=== PATIENT | male | born 1970 | race Caucasian/White ===

== ENCOUNTER 2016-08-14 03:15 | Emergency (ER) | payer OTHER ==
[~2016-08-14] VITALS: Ht 185.4 cm; Wt 87.7 kg
[~2016-08-14 03:15] MED LIST: DILA4TAB10 PO; GABA100C4 PO; MS C30TA5 PO; NAPR-576 PO
[2016-08-14 03:19] VITALS: BP 125/74; PULSE 59; RESP 18; TEMP 97.6; O2SAT 98
[2016-08-14] MEDS ORDERED: DILA4TAB2 PO (03:39)
[2016-08-14] MEDS ORDERED: CELE200C PO (03:39)
[2016-08-14] MEDS ORDERED: SOMA350T PO (03:39)
[2016-08-14] MEDS ORDERED: GABA600T PO (03:39)
[2016-08-14] MEDS ORDERED: MS C30TA PO (03:39)
[2016-08-14] MEDS ORDERED: DOXY100C PO (03:58)
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
[2016-08-14] MEDS ORDERED: AZITHROMYCIN PWD FOR SUSP 1 GM PACKET PO ONE (04:00)
[2016-08-14] MEDS ORDERED: LIDOCAINE HCL 1% 50 ML VIAL IM ONE (04:00)
== END 2016-08-14 04:41 | disposition home or self-care (01) ==
LOC: PHED 03:15
DX: N34.1 Nonspecific urethritis (principal); I10 Essential (primary) hypertension; G89.29 Other chronic pain; M54.9 Dorsalgia, unspecified; F17.210 Nicotine dependence, cigarettes, uncomplicated
CPT/HCPCS: 96372; 99283; J0696

== ENCOUNTER 2017-01-12 20:48 | Emergency (ER) | payer OTHER ==
[~2017-01-12] VITALS: Ht 185.4 cm; Wt 84.0 kg
[~2017-01-12 20:48] MED LIST changes: +CELE200C PO; -DILA4TAB10 PO; +DILA4TAB2 PO; +DOXY100C PO; -GABA100C4 PO; +GABA600T PO; +MS C30TA PO; -MS C30TA5 PO; -NAPR-576 PO; +SOMA350T PO
[2017-01-12 20:55] VITALS: BP 115/74; PULSE 70; RESP 14; TEMP 98; O2SAT 98
--- NOTE | 2017-01-12 21:51 | PD ---
HPI Chief Complaint: Skin Problem Time Seen by Provider: 21:20 Travel History International Travel<30 days: No Contact w/Intl Traveler<30days: No Traveled to known affect area: No History of Present Illness HPI 47-year-old male presents to emergency department for evaluation of a painful lump on her back. Patient reports this lump has been there for several months but recently became painful and tender. He denies fever, chills, nausea or vomiting, chest pain shortness of breath. PFSH Past Medical History Medical History: Denies Significant Hx Diminished Hearing: No Headaches: Yes (CLUSTER HEADACHES) Herniated Disk: Yes (L4, L5, CERVICAL AND THORACIC) Hypertension: Yes (EARLY 30'S) Musculoskeletal: Yes (CHRONIC BACK PAIN) Migraines: Yes Tetanus Vaccination: < 5 Years Influenza Vaccination: No Past Surgical History Body Medical Devices: CLUSTER HEADACHES Other Surgery: Yes (lower lumbar disc fusion and addi placement: October) Social History Alcohol Use: No Tobacco Use: Yes (1 PPD) Substance Use: No Allergies-Medications (Allergen,Severity, Reaction): Coded Allergies: No Known Allergies (Verified , 01/12/17) Reported Meds & Prescriptions Reported Meds & Active Scripts Active Reported Soma (Carisoprodol) 350 Mg Tab 350 Mg PO TID PRN Ms Contin (Morphine Sulfate) 30 Mg Tab 30 Mg PO BID Dilaudid (Hydromorphone HCl) 4 Mg Tab 4 Mg PO Q4H PRN Gabapentin 600 Mg Tab 600 Mg PO BID Review of Systems Except as stated in HPI: all other systems reviewed are Neg Physical Exam Narrative GENERAL: Well-nourished, well-developed patient. SKIN: Focused skin assessment warm/dry. Sebaceous cyst with mild erythema posterior portion of thorax. No surrounding cellulitis. HEAD: Normocephalic. EYES: No scleral icterus. No injection or drainage. NECK: Supple, trachea midline. No JVD or lymphadenopathy. CARDIOVASCULAR: Regular rate and rhythm without murmurs, gallops, or rubs. RESPIRATORY: Breath sounds equal bilaterally. No accessory muscle use. GASTROINTESTINAL: Abdomen soft, non-tender, nondistended. MUSCULOSKELETAL: No cyanosis, or edema. BACK: Nontender without obvious deformity. No CVA tenderness. Data Data Last Documented VS Vital Signs Date Time Temp Pulse Resp B/P Pulse Ox O2 Delivery O2 Flow Rate FiO2 01/12/17 20:55 98.0 70 14 115/74 98 [facility] Medical Decision Making Medical Screen Exam Complete: Yes Emergency Medical Condition: Yes Medical Record Reviewed: Yes Differential Diagnosis Inflamed Sebaceous cyst, abscess Narrative Course 47-year-old male presents emergency periphery evaluation of a painful lump on his back that has been present for greater in 4-5 months. He reports several days ago the area became slightly tender prompting him to come to the emergency room for evaluation. Rakesh the areas consistent with a sebaceous cyst with slight erythema. Discussed options of I&D or follow-up with dermatology for definitive removal of the cyst sac. Patient opted to start antibiotics now make an appointment for dermatology this week Diagnosis Primary Impression: Inflamed sebaceous cyst Referrals: Operating Room Assistant Additional Instructions: Make an appointment for follow-up with dermatology. Scripts Sulfamethoxazole-Trimethoprim (Bactrim DS)800-160 Mg Tab1 Tab PO BID #20 TAB Prov:Karen Stanley 01/12/17 Disposition: 01 DISCHARGE HOME Condition: Stable Karen Stanley Jan 12, 2017 21:51
[2017-01-12] MEDS ORDERED: BACT800T5 PO (21:54)
== END 2017-01-12 21:59 | disposition home or self-care (01) ==
LOC: PHEFT 20:48
DX: L72.3 Sebaceous cyst (principal); L53.9 Erythematous condition, unspecified; F17.200 Nicotine dependence, unspecified, uncomplicated; Z87.39 Personal history of other diseases of the musculoskeletal system and connective tissue; Z86.69 Personal history of other diseases of the nervous system and sense organs
CPT/HCPCS: 99283

== ENCOUNTER 2017-05-05 21:17 | Emergency (ER) | payer OTHER, MEDICAID ==
[~2017-05-05] VITALS: Ht 185.4 cm; Wt 87.4 kg
[~2017-05-05 21:17] MED LIST changes: +BACT800T5 PO; -CELE200C PO; -DOXY100C PO
[2017-05-05 21:22] VITALS: BP 126/59; PULSE 76; RESP 16; TEMP 97.9; O2SAT 97
[2017-05-05] MEDS ORDERED: DOXY100C PO (22:06)
[2017-05-05] MEDS ORDERED: BACT800T5 PO (22:06)
--- NOTE | 2017-05-05 22:06 | PD ---
HPI Chief Complaint: General Weakness Time Seen by Provider: 21:50 Travel History International Travel<30 days: No Contact w/Intl Traveler<30days: No Traveled to known affect area: No History of Present Illness HPI The patient is a 47-year-old right-hand dominant male that got bitten by something on his right index finger, proximal to the PIP joint this morning. He does not know what building but he notices swelling in the area and a drainage. The patient states he did not feel immediate pain with a bite. He doubts that this could be a snake. He complains of a throbbing pain level of 6/ 10. He has slight swelling around the area and thinks he notices a red streak coming up on the ulnar aspect of his index finger. His last tetanus shot was 3 years ago. [facility] Past Medical History Diminished Hearing: No Headaches: Yes (CLUSTER HEADACHES) Herniated Disk: Yes (L4, L5, CERVICAL AND THORACIC) Hypertension: Yes (EARLY 30'S) Musculoskeletal: Yes (CHRONIC BACK PAIN) Neurologic: Yes (HEADACHE DAILY X LAST 2 MONTHS) Migraines: Yes Tetanus Vaccination: Unknown Influenza Vaccination: No ?: Not Past Surgical History Body Medical Devices: CLUSTER HEADACHES Other Surgery: Yes (lower lumbar disc fusion and addi placement: October, BACK SURGERY) Social History Alcohol Use: No Tobacco Use: Yes (1 PPD) Substance Use: No Allergies-Medications (Allergen,Severity, Reaction): Coded Allergies: No Known Allergies (Verified , 05/05/17) Reported Meds & Prescriptions Reported Meds & Active Scripts Active Doxycycline Hyclate 100 Mg Cap 100 Mg PO BID Bactrim DS (Sulfamethoxazole-Trimethoprim) 800-160 Mg Tab 1 Tab PO BID Bactrim DS (Sulfamethoxazole-Trimethoprim) 800-160 Mg Tab 1 Tab PO BID Reported Soma (Carisoprodol) 350 Mg Tab 350 Mg PO TID PRN Ms Contin (Morphine Sulfate) 30 Mg Tab 30 Mg PO BID Dilaudid (Hydromorphone HCl) 4 Mg Tab 4 Mg PO Q4H PRN Gabapentin 600 Mg Tab 600 Mg PO BID Review of Systems Except as stated in HPI: all other systems reviewed are Neg Physical Exam Narrative GENERAL: Well-nourished, well-developed patient in slight apparent distress with his right index finger lesion. His vital signs are normal. SKIN: Focused skin assessment warm/dry. There is a 6 mm diameter bullous area that is draining serosanguineous fluid. This fluid was cultured. There perhaps is a slight red streak coming up from this lesion on the dorsal ulnar aspect of the index finger. Minimal swelling is present on the index finger. HEAD: Normocephalic. EYES: No scleral icterus. No injection or drainage. NECK: Supple, trachea midline. No JVD or lymphadenopathy. CARDIOVASCULAR: Regular rate and rhythm without murmurs, gallops, or rubs. RESPIRATORY: Breath sounds equal bilaterally. No accessory muscle use. GASTROINTESTINAL: Abdomen soft, non-tender, nondistended. MUSCULOSKELETAL: No cyanosis, or edema. BACK: Nontender without obvious deformity. No CVA tenderness. Data Data Last Documented VS Vital Signs Date Time Temp Pulse Resp B/P (MAP) Pulse Ox O2 Delivery O2 Flow Rate FiO2 05/05/17 21:46 16 98 Room Air 05/05/17 21:22 97.9 76 126/59 (81) MDM Medical Decision Making Medical Screen Exam Complete: Yes Emergency Medical Condition: Yes Medical Record Reviewed: Yes Differential Diagnosis Insect/arthropod bite, arachnoid bite, snakebite-highly unlikely, puncture wound -unlikely Narrative Course The patient appears to have a bite on his finger. A snakebite is highly unlikely in this is likely an insect/arthropod/arachnid bite. This appears to be infected already, some pus is present already in the wound. Plan: The patient be put on doxycycline and Septra to take twice daily for 10 days, elevation, heat in the form of a heating pad or soaking it is advisable. Procedures EKG Prior to Arrival: No EKG Not Completed: EKG Not Medically Necessary Diagnosis Primary Impression: Bug bite of finger, infected Additional Instructions: As we discussed, heat, elevation and the 2 antibiotics are the mainstay of treatment. Make sure you cover this finger if you go to work. Follow-up with a hand surgeon or return to the emergency department if worse. Using a heating pad turn it on to its lowest setting an interpose a towel between your skin and the pad to avoid pillai. Scripts Doxycycline Hyclate (Doxycycline Hyclate) 100 Mg Cap 100 MG PO BID for Infection, #20 CAP 0 Refills Prov: Efe Torres MD 05/05/17 Sulfamethoxazole-Trimethoprim (Bactrim DS) 800-160 Mg Tab 1 TAB PO BID for Infection, #20 TAB 0 Refills Prov: Efe Torres MD 05/05/17 Disposition: 01 DISCHARGE HOME Condition: Stable Efe Torres MD May 05, 2017 22:06
[2017-05-05] MEDS ORDERED: DOXYCYCLINE HYCLATE 100 MG CAP PO ONE (22:15)
[2017-05-05] MEDS ORDERED: SULFAMETHOXAZOLE-TRIMETHOPRIM DS 800-160 MG TAB PO ONE (22:15)
[2017-05-05 22:20] VITALS: BP 127/76
== END 2017-05-05 22:33 | disposition home or self-care (01) ==
LOC: PHED 21:17
DX: S60.460A Insect bite (nonvenomous) of right index finger, initial encounter (principal); I10 Essential (primary) hypertension; F17.210 Nicotine dependence, cigarettes, uncomplicated
CPT/HCPCS: 99284